=== PATIENT | male | born 1960 | race Caucasian/White ===

== ENCOUNTER 2022-06-26 13:13 | Emergency (ER) | payer OTHER ==
[~2022-06-26] VITALS: Ht 185.4 cm; Wt 124.7 kg
[~2022-06-26 13:13] MED LIST: CELEXA40 MG PO; GLYBURIDE2.5 MG PO; METFORMIN HCL1000 MG PO; PERCOCET 5-3251 EACH PO; PRILOSEC OTC20 MG PO; TOUJEO SOL300 UNIT/1 SQ; ZOFRAN ODT8 MG PO
[2022-06-26] MEDS ORDERED: JARDIANCE10 MG PO (13:17)
[2022-06-26] MEDS ORDERED: OZEMPIC0.25 MG/0. SQ (13:17)
[2022-06-26] MEDS ORDERED: MELOXICAM7.5 MG PO (13:17)
== END 2022-06-26 14:45 | disposition home or self-care (01) ==
LOC: ED 13:13
DX: S61.011A Laceration without foreign body of right thumb without damage to nail, initial encounter (principal); W26.0XXA Contact with knife, initial encounter; E11.9 Type 2 diabetes mellitus without complications; Z88.5 Allergy status to narcotic agent; Z79.899 Other long term (current) drug therapy; Z79.4 Long term (current) use of insulin; Z79.84 Long term (current) use of oral hypoglycemic drugs
CPT/HCPCS: 99282

== ENCOUNTER 2024-02-17 11:38 | Emergency (ER) | payer OTHER ==
[~2024-02-17] VITALS: Ht 185.4 cm; Wt 115.0 kg
[~2024-02-17 11:38] MED LIST changes: +JARDIANCE10 MG PO; +MELOXICAM7.5 MG PO; +OZEMPIC0.25 MG/0. SQ; -TOUJEO SOL300 UNIT/1 SQ; +TOUJEO SOL300 UNIT/1 SUB-Q
[2024-02-17] MEDS ORDERED: FLUOROMETHOLONE5 ML OPTH (11:50)
[2024-02-17 12:16] LABS: BASOPHILS 1.1 % (0-2); EOSINOPHILS 4.2 % (0-6); HEMOGLOBIN 16.1 g/dL (12.0-18.0); LYMPHOCYTES 17.4 % (24-44); MCH 29.2 (27-36); MCHC 33.5 g/dl (30-36); MCV 87.2 fl (81-99); NEUTROPHILS 69.3 % (39-80); PLATELET COUNT 212 K/uL (140-440); RDW 14.8 (10.5-15.0)
[2024-02-17 12:40] LABS: ALBUMIN 4.1 g/dL (3.4-5.0); ALBUMIN/GLOBULIN RATIO 1.11 (1.1-2.4); ALKALINE PHOSPHATASE 71 U/L (46-116); ALT (SGPT) 50 U/L (14-59); AST (SGOT) 19 U/L (15-37); BILIRUBIN, TOTAL 0.4 ng/dL (0.2-1.0); BUN/CREATININE RATIO 30.52 (6.0-28.6); CALCIUM 9.7 mg/dL (8.5-10.1); CARBON DIOXIDE 24 mmol/L (21-32); CHLORIDE 102 mmol/L (98-107); CREATININE, SERUM 0.95 mg/dL (0.70-1.30); GLOMERULAR FILTRATION RATE,EST 91 mL/min (>60); PROTEIN, TOTAL 7.8 g/dL (6.4-8.2); TSH, 3RD GENERATION 1.124 uIU/mL (0.358-3.740); UREA NITROGEN 29 mg/dL (7-18)
[2024-02-17] MEDS ORDERED: SODIUM CHLORIDE 0.9% 1,000 ML IV PRN (13:45)
[2024-02-17 13:50] LABS: AMPHETAMINES, URINE NEGATIVE (NEGATIVE); BARBITURATES, URINE NEGATIVE (NEGATIVE); BENZODIAZEPINE, URINE NEGATIVE (NEGATIVE); BUPRENORPHINE, URINE NEGATIVE (NEGATIVE); CANNABINOID, URINE NEGATIVE (NEGATIVE); COCAINE, URINE NEGATIVE (NEGATIVE); ECSTASY, URINE NEGATIVE (NEGATIVE); FENTANYL, URINE NEGATIVE (NEGATIVE); METHADONE, URINE NEGATIVE (NEGATIVE); OPIATES, URINE NEGATIVE (NEGATIVE); OXYCODONE, URINE NEGATIVE (NEGATIVE); PHENCYCLIDINE, URINE NEGATIVE (NEGATIVE)
[2024-02-17 16:11] VITALS: BP 121/75
[2024-02-18 21:20] LABS: THYROXINE 7.57 ug/dL (4.50-11.70)
--- NOTE | 2024-02-19 10:49 | EKG ---
[facility] [address] [place] [address] Signed Sinus rhythm with 1st degree AV block Left axis deviation Minimal voltage criteria for LVH, may be normal variant ( [place] product ) Inferior infarct , age undetermined Abnormal ECG No previous ECGs available Confirmed by Cristian Cuba MD ([id number]) on 02/19/2024 10:49:03 AM Electronically Signed By: CRISTIAN CUBA MD 02/19/24 1049 PATIENT NAME: BIANCA MORA Electrocardiogram DATE OF : 64 PHYSICIAN: CRISTIAN CUBA MD REPORT #: [id number] REPORT IS CONFIDENTIAL AND NOT TO BE RELEASED WITHOUT AUTHORIZATION
[2024-03-01] MEDS ORDERED: VENTOLIN HFA18 GM PO (11:29)
[2024-03-01] MEDS ORDERED: BAQSIMI3 MG NAS (11:30)
[2024-03-01] MEDS ORDERED: PRAVASTATIN SOD20 MG PO (11:30)
[2024-03-01] MEDS ORDERED: ZESTRIL20 MG PO (11:31)
[2024-03-02] MEDS ORDERED: LEVOFLOXACIN500 MG PO (06:54)
[2024-03-02] MEDS ORDERED: PATADAY ONCE DAI5 ML OU (06:57)
== END 2024-02-17 16:10 | disposition home or self-care (01) ==
LOC: ED 11:38
PROVIDERS: Emergency Medicine
DX: R00.2 Palpitations (principal); E11.9 Type 2 diabetes mellitus without complications; Z79.84 Long term (current) use of oral hypoglycemic drugs; Z79.4 Long term (current) use of insulin; Z79.899 Other long term (current) drug therapy; Z88.1 Allergy status to other antibiotic agents; Z88.8 Allergy status to other drugs, medicaments and biological substances; Z88.5 Allergy status to narcotic agent
CPT/HCPCS: 36415; 80053; 80307; 83735; 83880; 84436; 84443; 84484; 85025; 93005; 93010; 99285